=== PATIENT | female | born 1960 | race Caucasian/White ===

== ENCOUNTER 2019-01-14 09:19 | Day surgery (SDC) | payer OTHER ==
[~2019-01-14] VITALS: Ht 160 cm; Wt 79.4 kg
[2019-01-14] MEDS ORDERED: fentaNYL 0.05 MG/ML VIAL ONE (12:16)
[2019-01-14] MEDS ORDERED: MIDAZOLAM 2 MG/2 ML VIAL ONE (12:16)
== END 2019-01-14 13:28 | disposition home or self-care (01) ==
LOC: MOR 09:19 → MMU 09:20 → MOR 13:28
PROVIDERS: ATTEND Internal Medicine Gastroenterology
DX: K21.0 Gastro-esophageal reflux disease with esophagitis (principal); K29.80 Duodenitis without bleeding; M19.90 Unspecified osteoarthritis, unspecified site; F32.9 Major depressive disorder, single episode, unspecified; Z68.31 Body mass index [BMI] 31.0-31.9, adult; M47.819 Spondylosis without myelopathy or radiculopathy, site unspecified; Z90.49 Acquired absence of other specified parts of digestive tract; Z79.899 Other long term (current) drug therapy; E66.9 Obesity, unspecified
CPT/HCPCS: 36415; 43239; 86677; J2250; J3010